=== PATIENT | male | born 2000 | race Caucasian/White ===

== ENCOUNTER 2020-07-07 15:44 | Emergency (ER) | payer OTHER, SELFPAY ==
--- NOTE | 2020-07-07 15:48 | ED.EAR ---
HPI - Ear Problem General Chief complaint: Ear Stated complaint: ear pain Time Seen by Provider: 07/07/20 15:56 Source: patient and RN notes reviewed Mode of arrival: ambulatory Limitations: no limitations History of Present Illness HPI Narrative: 20-year-old male presents with concern for left knee pain and drainage. Reports that he just returned from [place] where he was swimming oxygen. He denies fever, malaise, rhinorrhea, nasal congestion, cough, shortness of breath, sore throat Complaint: ear pain Related Data Allergies Allergy/AdvReac Type Severity Reaction Status Date / Time Penicillins Allergy Unknown Verified 07/07/20 16:03 Review of Systems Review of Systems: Narrative: CONSTITUTIONAL: Denies malaise, chills, sweats, or fever. EYES: Denies visual changes, redness, or discharge. ENT: Denies rhinorrhea, congestion, sinus pain, and sore throat. Reports left ear pain with discharge CARDIOVASCULAR: Denies chest pain, palpitations, or edema. RESPIRATORY: Denies cough or dyspnea. GASTROINTESTINAL: Denies abdominal pain, nausea, vomiting, diarrhea SKIN: Denies rash or itching. MUSCULOSKELETAL: Denies myalgia. NEUROLOGIC: Denies headache. All systems reviewed & are unremarkable except as noted in HPI and below PMFSH Comments At time of signature, agree with nursing past medical, surgical, social and family history. There is no relevant family history pertinent to the presenting complaint Exam Narrative: Exam Narrative: GENERAL: Well-appearing, well-nourished, and in no acute distress. HEAD: Normocephalic EYES: PERRLA, conjunctivae clear ENT: Nares clear, turbinates pink, no discharge. Mucous membranes moist. TM pearly wade with sharp light reflex bilaterally; left tragal tenderness with auditory canal erythema, edema, purulent drainage. Oropharynx not erythematous without lesions. Tonsils not enlarged and without exudate, no drooling, no hoarseness, no trismus, uvula midline. NECK: Supple. No lymphadenopathy CHEST: Clear to auscultation, breath sounds equal. No wheezing, rhonchi, rales, or stridor. No respiratory distress, speaks in full sentences. HEART: Regular rate and rhythm. No murmur heard. SKIN: Warm, dry, no rash. NEURO: Alert and oriented x3. PSYCH: Normal mood and affect Course Course Emergency Course: Patient is aware of diagnosis, understands and agrees to treatment plan. Anticipatory guidance given. Patient agrees to follow-up as directed and is aware of reasons to seek care at the emergency department. Portions of this record may have been created with voice recognition software Vital Signs Vital signs: Vital Signs Temperature 100 F H 07/07/20 15:55 Pulse Rate 78 07/07/20 15:55 Respiratory Rate 16 07/07/20 15:55 Blood Pressure 142/83 H 07/07/20 15:55 Pulse Oximetry 99 07/07/20 15:55 Temperature 100 F H 07/07/20 15:55 Pulse Rate 78 07/07/20 15:55 Respiratory Rate 16 07/07/20 15:55 Blood Pressure 142/83 H 07/07/20 15:55 Pulse Oximetry 99 07/07/20 15:55 Reviewed. Medical Decision Making MDM Narrative Medical decision making narrative: Differential diagnosis considered: Guillory virus, strep pharyngitis, allergic rhinitis, upper respiratory tract infection, sinusitis, rhinosinusitis, nasopharyngitis. viral pharyngitis, otitis media, otitis externa, pneumonia, bronchitis, viral cough syndrome, viral syndrome, and influenza. Exam findings show no acute concerns or changes; patient is non-toxic appearing and is in no distress. Patient is appropriate for outpatient treatment and follow-up. Vital Signs Vital Signs: Vital Signs Temperature 100 F H 07/07/20 15:55 Pulse Rate 78 07/07/20 15:55 Respiratory Rate 16 07/07/20 15:55 Blood Pressure 142/83 H 07/07/20 15:55 Pulse Oximetry 99 07/07/20 15:55 Temperature 100 F H 07/07/20 15:55 Pulse Rate 78 07/07/20 15:55 Respiratory Rate 16 07/07/20 15:55 Blood Pressure 142/83 H 07/07/20 15:55 Pulse Oxime
[2020-07-07 15:55] VITALS: BP 142/83; PULSE 78; RESP 16; TEMP 37.7; O2SAT 99
== END 2020-07-07 16:07 | disposition home or self-care (01) ==
PROVIDERS: Emergency Provider Nurse Practitioner
DX: H60.502 Unspecified acute noninfective otitis externa, left ear (principal)
CPT/HCPCS: 99213; G0463